=== PATIENT | female | born 1975 | race Caucasian/White ===

== ENCOUNTER 2025-03-16 11:28 | Emergency (ER) | payer MEDICAID, SELFPAY ==
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
[2025-03-16 12:14] VITALS: BP 154/98; PULSE 88; RESP 18; TEMP 36.8; O2SAT 98
--- NOTE | 2025-03-16 12:30 | PC.NURSE ---
CALL ZEKE VALADEZ. PLACED ON HOLD. UNABLE TO WAIT.
--- NOTE | 2025-03-16 12:40 | PC.NURSE ---
CALL ZEKE VALADEZ. PLACED ON HOLD. UNABLE TO WAIT.
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
--- NOTE | 2025-03-16 16:05 | PC.NURSE ---
CALLED PT TO BE SEEN BY PROVIDER; NO ANSWER. FIRST CALL.
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
--- NOTE | 2025-03-16 16:14 | PC.NURSE ---
CALLED FOR PT FROM LOBBY/OUTSIDE, NO ANSWERX1@ [phone]
--- NOTE | 2025-03-16 17:06 | PC.NURSE ---
CALLED FOR PT FROM LOBBY/OUTSIDE, NO ANSWERX2@ [phone]
--- NOTE | 2025-03-16 17:23 | PC.NURSE ---
called for pt from lobby/outside, no answerx3@ [phone]
--- NOTE | 2025-03-16 17:33 | PC.NURSE ---
ATTEMPTED TO CONTACT PT. NO ANSWER ON PHONE
== END 2025-03-16 17:27 | disposition left against medical advice (07) ==
LOC: SERX 12:26
PROVIDERS: Emergency Provider Emergency Medicine
DX: S09.93XA Unspecified injury of face, initial encounter (principal); Y04.2XXA Assault by strike against or bumped into by another person, initial encounter; Z53.29 Procedure and treatment not carried out because of patient's decision for other reasons
CPT/HCPCS: 70110; 70150; 70486; 99284

== ENCOUNTER 2025-03-19 22:23 | Emergency (ER) | payer MEDICAID, SELFPAY ==
[2025-03-19 22:25] VITALS: BMI 34.3
[2025-03-19 22:30] VITALS: BP 158/100; PULSE 103; RESP 20; TEMP 36.7; O2SAT 98
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
[2025-03-20 00:39] VITALS: BP 143/97; PULSE 83; RESP 16; TEMP 36.9; O2SAT 98
--- NOTE | 2025-03-20 00:53 | PC.NURSE ---
CALLED OFFSITE PHARMACY PT HAS ALLERGY TO HYDROCODONE ASKED STATES MORPHINE OK TO GIVE
[2025-03-20] MEDS: MORPHINE SULF INJ 4 MG/ML VIAL IM (00:56)
[2025-03-20 02:39] VITALS: BP 125/78; PULSE 81; RESP 19; TEMP 36.5; O2SAT 95
== END 2025-03-20 03:07 | disposition home or self-care (01) ==
PROVIDERS: Emergency Provider Emergency Medicine
DX: S02.609A Fracture of mandible, unspecified, initial encounter for closed fracture (principal); F17.210 Nicotine dependence, cigarettes, uncomplicated; Y09 Assault by unspecified means
CPT/HCPCS: 70450; 96372; 99283; J2270

== ENCOUNTER 2025-04-22 20:14 | Emergency (ER) | payer MEDICAID, SELFPAY ==
[2025-04-22 20:14] VITALS: BMI 27.4
[2025-04-22 20:33] VITALS: BP 144/87; PULSE 94; RESP 18; TEMP 36.8; O2SAT 98
[2025-04-22] MEDS: AMOXICILLIN/POT CLAV 875 TABLET 1 TAB PO (20:59)
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
== END 2025-04-22 21:16 | disposition home or self-care (01) ==
LOC: SERX 21:06
PROVIDERS: Emergency Provider Emergency Medicine; PCP Family Medicine
DX: S81.832A Puncture wound without foreign body, left lower leg, initial encounter (principal); W54.0XXA Bitten by dog, initial encounter
CPT/HCPCS: 99284; A9270

== ENCOUNTER 2025-05-11 14:18 | Emergency (ER) | payer MEDICAID, SELFPAY ==
[2025-05-11 14:29] VITALS: BP 117/77; PULSE 120; RESP 20; TEMP 38.8; O2SAT 98; BMI 31.7
--- NOTE | 2025-05-11 14:40 | EDRME_ITS ---
Rapid Medical Screening Exam [facility] Arrival date/time: 05/11/25 14:18 49-year-old female with no known medical history presents to the emergency room with a chief complaint of fevers, pain with urination and vaginal discharge x 1 day I have greeted and performed a focused initial assessment of this patient. A comprehensive ED assessment and evaluation of the patient, analysis of all test results, and completion of the medical decision making process will be conducted by additional ED providers. Chief Complaint: Arrhythmia/Palpitations Time Seen by Provider: 05/11/25 14:30 Vital signs: Vital Signs Temperature 101.8 F H 05/11/25 14:29 Pulse Rate 120 H 05/11/25 14:29 Respiratory Rate 20 05/11/25 14:29 Blood Pressure 117/77 05/11/25 14:29 Pulse Oximetry (%) 98 05/11/25 14:29 Oxygen Delivery Method Room Air 05/11/25 14:29 Vital signs reviewed by provider: Yes Exam: Tender suprapubic area with palpation, Clear bilateral lung sounds Clinical Impression: Urinary tract infection/urosepsis/
[2025-05-11 15:12] VITALS: TEMP 38.8
[2025-05-11] MEDS: ACETAMINOPHEN 500 MG TABLET 1000 MG PO (15:12)
[2025-05-11 15:54] LABS: Collection Type, Urine Clean Catch
[2025-05-11 15:56] LABS: Lactate (Lactic Acid) 1.1 mMol/L (0.4-2.0)
[2025-05-11 16:03] LABS: Basophils # (Auto) 0.0 Thou/mm3 (0.0-0.2); Basophils % (Auto) 0 % (0-2.5); Eosinophils # (Auto) 0.0 Thou/mm3 (0.0-0.5); Eosinophils % (Auto) 0 % (0-10); Hematocrit 34.2 % (36.0-46.0); Hemoglobin 11.1 g/dL (12.0-16.0); Immature Granulocytes Auto 0.08 Thou/mm3 (0.00-0.00); Lymphocytes # (Auto) 1.3 Thou/mm3 (1.0-4.8); Lymphocytes % (Auto) 8 % (10-50); Mean Corpuscular HGB Conc 32.5 g/dl (31.0-37.0); Mean Corpuscular Hemoglobin 28.1 pg (25.0-35.0); Mean Corpuscular Volume 87 fL (80-100); Monocytes # (Auto) 1.3 Thou/mm3 (0.0-0.8); Monocytes % (Auto) 8 % (0-12); Neutrophils # (Auto) 13.7 Thou/mm3 (1.8-7.7); Neutrophils % (Auto) 83 % (37-80); Nucleated Red Blood Cell # 0.00 Thou/mm3 (0.00-0.00); Nucleated Red Blood Cell % 0 /100 WBC (0); Platelet Count 273 Thou/mm3 (140-440); RDW Standard Deviation 42.4 fL (36.4-46.3); Red Blood Count 3.95 Miln/mm3 (4.00-5.20); White Blood Count 16.5 Thou/mm3 (3.6-11.0)
[2025-05-11 16:05] LABS: Bilirubin,Urine Negative (Negative); Blood,Urine Trace (Negative); Clarity,Urine Clear (Clear/Hazy); Color,Urine Yellow (Lt Yel-Yel); Glucose, Urine Negative (Negative); Hyaline Casts,Urine < 1 /hpf (0-1); Ketones,Urine Negative (Negative); Leukocyte Esterase,Urine Positive (Negative); Nitrite,Urine Negative (Negative); PH,Urine 6.0 (5.0-7.0); Protein,Urine 1+ (Neg - Trace); RBC,Urine 5 /hpf (0-3); Specific Gravity,Urine 1.021 (1.001-1.035); Squamous Epithelial Cell,Urine 1 /hpf (0-5); Urobilinogen,Urine Negative mg/dL (0.0-1.0); WBC,Urine 8 /hpf (0-5)
[2025-05-11 16:10] LABS: Amphetamine/Methamp Scrn,U Positive (Negative); Barbiturate Screen,Urine Negative (Negative); Benzodiazepines Screen,Urine Negative (Negative); Benzoylecgonine Screen, Ur Negative (Negative); Fentanyl Screen,Urine Negative (Negative); Opiate Screen,Urine Negative (Negative); THC Screen,Urine Positive (Negative)
[2025-05-11 16:31] LABS: Alanine Aminotransferase 37 U/L (10-49); Albumin, Serum 4.2 gm/dL (3.5-5.0); Albumin/Globulin Ratio 1.8 (1.2-2.2); Alkaline Phosphatase 298 U/L (46-116); Anion Gap 11 (7-16); Aspartate Amino Transferase 40 U/L (0-34); BUN/Creatinine Ratio 10 Ratio (12-20); Bilirubin,Total 0.5 mg/dL (0.3-1.2); Blood Urea Nitrogen 10 mg/dL (9-23); Calcium 8.9 mg/dL (8.3-10.6); Calcium (Corrected) 8.9 mg/dL (8.5-10.1); Carbon Dioxide 23.1 mMol/L (20.0-31.0); Chloride 102 mMol/L (98-107); Creatinine (Component) 1.0 mg/dL (0.6-1.3); Estimated Creatinine Clearance 71.3 mL/min (>60); Globulin 2.4 gm/dL (2.3-3.5); Glucose 101 mg/dL (74-106); Osmolality,Calculated 270 (275-295); Potassium 3.9 mMol/L (3.4-5.1); Procalcitonin 3.09 ng/ml (0.0-0.49); Sodium 136 mMol/L (136-145); Total Protein 6.6 gm/dL (5.7-8.2); eGFR > 60 See Note
[2025-05-11 16:46] LABS: Syphilis Reactive (Nonreactive)
[2025-05-11 16:47] LABS: MHATP/TP-PA* See Sep Rpt
[2025-05-11 16:54] LABS: Influenza A Ag Negative; Influenza B Ag Negative
--- NOTE | 2025-05-11 19:16 | PC.NURSE ---
NO ANSWER AT ER LOBBY OR OUTSIDE TO BE RE EVALUATED BY .
--- NOTE | 2025-05-11 19:21 | PC.NURSE ---
NO ANSWER AT ER LOBBY OR OUTSIDE ER TO BE RE EVALUATED.
--- NOTE | 2025-05-11 19:30 | PC.NURSE ---
NO ANSWER AT ER LOBBY OR OUTSIDE ER TO BE RE EVALUATED.
[2025-05-12 12:27] LABS: Chlamydia trachomatis PCR Negative (Not Detect); Neisseria Gonorrhoeae DNA PCR Negative (Not Detect); Trichomonas Positive (Negative)
== END 2025-05-11 19:35 | disposition left against medical advice (07) ==
PROVIDERS: Nurse Practitioner Family; Emergency Provider Emergency Medicine
DX: Z53.21 Procedure and treatment not carried out due to patient leaving prior to being seen by health care provider (principal)
CPT/HCPCS: 36415; 80053; 80307; 81001; 83605; 84145; 85025; 86780; 87040; 87086; 87491; 87502; 87591; 87661; 99282; A9270